=== PATIENT | male | born 1955 | race Caucasian/White ===

== ENCOUNTER 2017-12-11 14:23 | Inpatient (IN) | payer OTHER ==
[~2017-12-11] VITALS: Ht 167.6 cm; Wt 85.7 kg
[2017-12-11 15:17] LABS: Basophils # (auto) 0 uL; Basophils % (auto) 0.3 % (0.0-2.0); Eosinophils # (auto) 0 uL; Eosinophils % (auto) 0.3 % (0.0-7.0); Hematocrit 46.5 % (41.0-53.0); Hemoglobin 16.3 g/dL (13.5-17.5); Lymphocytes # (auto) 0.5 uL; Lymphocytes % (auto) 5.9 % (10.0-50.0); Mean Corpuscular Hemoglobin 32.5 pg (28.0-32.0); Mean Corpuscular Hgb Conc. 35.1 g/dL (32.0-36.0); Mean Corpuscular Volume 92.6 fL (80.0-100.0); Monocytes % (auto) 11.5 % (0.0-12.0); Neutrophils # (auto) 7.4 uL; Nucleated Red Blood Cells % 1.6 %; Platelet Count (auto) 169 10^3/uL (140-450); Red Blood Cells 5.02 10^6/uL (4.5-5.90); Red Cell Distribution Width 12.8 % (11.8-14.3)
[2017-12-11 15:31] LABS: Alanine Aminotransferase 32 U/L (16-61); Albumin 4.4 g/dL (3.4-5.0); Alkaline Phosphatase 89 U/L (45-117); Anion Gap 8 (5-15); Aspartate Aminotransferase 18 U/L (15-37); BUN/Creatinine Ratio 7.1; Bilirubin, Total 1.1 mg/dL (0.2-1.0); Blood Urea Nitrogen 10 mg/dL (7-18); Calcium 8.7 mg/dL (8.5-10.1); Carbon Dioxide 27 mmol/L (21-32); Chloride 104 mmol/L (98-107); GFR African American 66 mL/min; GFR Non-African American 55 mL/min; Glucose 119 mg/dL (74-106); Magnesium 2.3 mg/dL (1.6-2.6); Potassium 3.7 mmol/L (3.5-5.1); Sodium 139 mmol/L (136-145)
[2017-12-11] MEDS ORDERED: ONDANSETRON HCL 4 MG/2 ML VIAL IV ONE (20:15)
[2017-12-11] MEDS ORDERED: MORPHINE SULFATE 4 MG/ML SYR/VIAL IV ONE (20:15)
[2017-12-11] MEDS ORDERED: ASPirin-EC 81 mg tab PO ONE (22:00)
[2017-12-11] MEDS ORDERED: ONDANSETRON HCL 4 MG/2 ML VIAL IV PRN (22:30)
[2017-12-11] MEDS ORDERED: MORPHINE SULFATE 4 MG/ML SYR/VIAL IV PRN (22:30)
[2017-12-11] MEDS ORDERED: NITROGLYCERIN 0.4 MG SL TAB SL PRN (22:30)
[2017-12-11] MEDS ORDERED: ATORVASTATIN 20 MG TAB PO ONE (22:30)
[2017-12-11] MEDS ORDERED: ACETAMINOPHEN 325 MG TAB PO PRN (22:30)
[2017-12-11] MEDS ORDERED: HYDROcodone-ACET 5/325MG TAB PO PRN (22:30)
[2017-12-11 23:22] LABS: Amylase 40 U/L (25-115); Lipase 118 U/L (73-393)
[2017-12-11 23:32] LABS: Cholesterol 191 mg/dL (< 200); HDL Cholesterol 41 mg/dL (40-59); LDL Cholesterol 139 mg/dL (< 100); Triglycerides 118 mg/dL (< 150)
[2017-12-12 00:36] VITALS: BP 139/93
[2017-12-12 05:00] VITALS: BP 119/59
[2017-12-12 07:02] LABS: Albumin 3.7 g/dL (3.4-5.0); BUN/Creatinine Ratio 10.6; Bilirubin, Total 0.9 mg/dL (0.2-1.0); Calcium 8.2 mg/dL (8.5-10.1); Potassium 3.6 mmol/L (3.5-5.1); Total Protein 7.5 g/dL (6.4-8.2)
[2017-12-12 07:28] LABS: Hematocrit 45.6 % (41.0-53.0); Hemoglobin 15.5 g/dL (13.5-17.5); Mean Corpuscular Hemoglobin 31.6 pg (28.0-32.0); Mean Corpuscular Hgb Conc. 33.9 g/dL (32.0-36.0); Mean Corpuscular Volume 93.2 fL (80.0-100.0); Platelet Count (auto) 115 10^3/uL (140-450); Red Blood Cells 4.89 10^6/uL (4.5-5.90); Red Cell Distribution Width 12.8 % (11.8-14.3); White Blood Cell 4.8 10^3/uL (4.4-10.8)
[2017-12-12 07:36] LABS: Band Neutrophils % (manual) 0; Basophils % (manual) 0 (0.0-2.0); Blast Cells 0; Eosinophils % (manual) 0 (0-7); Metamyelocytes % 0; Myelocytes % 0; Promyelocytes % 0; Reactive Lymphocytes 0
[2017-12-12] MEDS: METOPROLOL TARTRATE 50 MG TAB PO SCH ×2 (08:46→22:03)
[2017-12-12] MEDS: ENOXAPARIN SOD 40 MG/0.4 ML SYRINGE SC SCH (08:46)
[2017-12-12] MEDS: ASPirin 81 mg TAB PO SCH (08:46)
[2017-12-12] MEDS: FAMOTIDINE 20 MG TAB PO SCH ×2 (08:46→22:03)
[2017-12-12 09:00] VITALS: BP 134/89
[2017-12-12 12:28] LABS: Lymphocytes % (manual) 15 (10.0-50.0); Monocytes % (manual) 18 (0-12)
[2017-12-12 13:00] VITALS: BP 131/88
[2017-12-12] MEDS: IBUPROFEN 600 MG TAB PO PRN ×2 (14:28→18:51)
[2017-12-12] MEDS: PROMETHAZINE W/CODEINE 5 ML ORAL SYRUP PO PRN (14:29)
[2017-12-12] MEDS ORDERED: HYDROcodone-ACET 5/325MG TAB PO PRN (14:30)
[2017-12-12 17:15] VITALS: BP 118/69
[2017-12-12 22:00] VITALS: BP 116/86
[2017-12-12] MEDS: AMITRIPTYLINE HCL 25 MG TAB PO SCH (22:02)
[2017-12-12] MEDS: ATORVASTATIN 20 MG TAB PO SCH (22:03)
[2017-12-12] MEDS ORDERED: LOPE2TAB73 PO (22:12)
[2017-12-12] MEDS ORDERED: OMEP20CA74 PO (22:12)
[2017-12-12] MEDS ORDERED: SERT-274 PO (22:12)
[2017-12-12] MEDS ORDERED: METO-169 PO (22:12)
[2017-12-12] MEDS ORDERED: AMIT25TA9 PO (22:12)
[2017-12-12] MEDS ORDERED: ROPI1TAB22 PO (22:12)
[2017-12-12] MEDS: TEMAZEPAM 15 MG CAP PO PRN (22:20)
[2017-12-13 05:00] VITALS: BP 125/80
[2017-12-13] MEDS: PROMETHAZINE W/CODEINE 5 ML ORAL SYRUP PO PRN (08:29)
[2017-12-13] MEDS: FAMOTIDINE 20 MG TAB PO SCH ×2 (08:30→22:33)
[2017-12-13] MEDS: IBUPROFEN 600 MG TAB PO PRN ×2 (08:30→20:47)
[2017-12-13] MEDS: METOPROLOL TARTRATE 50 MG TAB PO SCH ×2 (08:31→22:33)
[2017-12-13] MEDS: ENOXAPARIN SOD 40 MG/0.4 ML SYRINGE SC SCH (08:31)
[2017-12-13] MEDS: ASPirin 81 mg TAB PO SCH (08:31)
[2017-12-13 09:00] VITALS: BP_SYST 131; BP_SYST 153; BP_DIAS 75; BP_DIAS 90
[2017-12-13 13:00] VITALS: BP 114/76
[2017-12-13] MEDS ORDERED: guaiFENesin-DM 100/10mg/5ml SYR PO PRN (14:15)
[2017-12-13 17:00] VITALS: BP 121/78
[2017-12-13] MEDS: ALBUTEROL SULF 2.5 MG/0.5ML(0.5%) NEB SOLN NEB SCH (18:54)
[2017-12-13] MEDS: IPRATROPIUM BROM 0.5 MG/2.5ML INH SOL NEB SCH (18:54)
[2017-12-13 20:02] VITALS: BP 121/78
[2017-12-13 22:00] VITALS: BP 124/76
[2017-12-13] MEDS: ATORVASTATIN 20 MG TAB PO SCH (22:32)
[2017-12-13] MEDS: AMITRIPTYLINE HCL 25 MG TAB PO SCH (22:32)
[2017-12-13] MEDS: TEMAZEPAM 15 MG CAP PO PRN (22:33)
[2017-12-14 06:02] VITALS: BP 133/74
[2017-12-14] MEDS: IPRATROPIUM BROM 0.5 MG/2.5ML INH SOL NEB SCH ×2 (08:19→12:23)
[2017-12-14] MEDS: ALBUTEROL SULF 2.5 MG/0.5ML(0.5%) NEB SOLN NEB SCH ×2 (08:19→12:23)
[2017-12-14] MEDS ORDERED: ADENOSINE 72 MG in GIVE UN-DILUTED 0 ML IV ONE (08:45)
[2017-12-14 09:00] VITALS: BP 138/78
[2017-12-14] MEDS ORDERED: ALBUTEROL SULF 2.5 MG/0.5ML(0.5%) NEB SOLN ONE (09:58)
[2017-12-14] MEDS ORDERED: IPRATROPIUM BROM 0.5 MG/2.5ML INH SOL ONE (09:58)
[2017-12-14 10:00] VITALS: BP 107/80
[2017-12-14] MEDS ORDERED: predniSONE 20 MG TAB PO SCH (10:00)
[2017-12-14] MEDS ORDERED: SERTRALINE HCL 50 MG TAB PO SCH (10:00)
[2017-12-14] MEDS: FAMOTIDINE 20 MG TAB PO SCH (11:25)
[2017-12-14] MEDS: METOPROLOL TARTRATE 50 MG TAB PO SCH (11:26)
[2017-12-14] MEDS: ASPirin 81 mg TAB PO SCH (11:26)
[2017-12-14] MEDS: ENOXAPARIN SOD 40 MG/0.4 ML SYRINGE SC SCH (11:27)
[2017-12-14] MEDS: IBUPROFEN 600 MG TAB PO PRN (12:07)
[2017-12-14 13:00] VITALS: BP 136/81
[2017-12-14] MEDS ORDERED: ATOR20TA50 PO (13:01)
[2017-12-14] MEDS ORDERED: MET50T PO (13:01)
[2017-12-14] MEDS ORDERED: ASPI81CH43 PO (13:01)
[2017-12-14] MEDS ORDERED: ALBUAER3 IN (13:01)
[2017-12-14 16:04] VITALS: BP 136/81
== END 2017-12-14 17:30 | disposition home or self-care (01) | DRG 140 ==
LOC: ER 14:23 → TELE 14:24 → TELE-WESTW 23:52
PROVIDERS: ADMIT Nurse Practitioner; ATTEND Internal Medicine
DX: J44.0 Chronic obstructive pulmonary disease with (acute) lower respiratory infection (principal); D69.6 Thrombocytopenia, unspecified; I10 Essential (primary) hypertension; K57.30 Diverticulosis of large intestine without perforation or abscess without bleeding; J20.9 Acute bronchitis, unspecified; K58.0 Irritable bowel syndrome with diarrhea; F32.9 Major depressive disorder, single episode, unspecified; G43.909 Migraine, unspecified, not intractable, without status migrainosus; E78.5 Hyperlipidemia, unspecified; G47.00 Insomnia, unspecified; Z82.49 Family history of ischemic heart disease and other diseases of the circulatory system; Z90.49 Acquired absence of other specified parts of digestive tract; Z87.891 Personal history of nicotine dependence; Z88.8 Allergy status to other drugs, medicaments and biological substances
CPT/HCPCS: 36415; 71046; 74176; 80053; 80061; 82150; 83690; 83735; 83880; 84484; 85007; 85025; 85027; 85379; 87070; 87205; 93005; 93017; 93306; 94640; 94761; 96374; 96375; J0153; J2405

== ENCOUNTER 2021-09-10 19:52 | Emergency (ER) | payer MEDICAID, OTHER ==
[~2021-09-10] VITALS: Ht 167.6 cm; Wt 90.7 kg
[~2021-09-10 19:52] MED LIST: ALBUAER3 IN; AMIT25TA12 PO; ASPI81CH43 PO; ATOR20TA50 PO; LOPE2TAB73 PO; MET50T PO; OMEP20CA74 PO; SERT50TA19 PO
[2021-09-11 02:40] VITALS: BP 142/84
== END 2021-09-11 02:45 | disposition home or self-care (01) ==
LOC: ER 19:55
DX: I10 Essential (primary) hypertension (principal); F41.9 Anxiety disorder, unspecified; F32.9 Major depressive disorder, single episode, unspecified; J45.909 Unspecified asthma, uncomplicated; E78.5 Hyperlipidemia, unspecified; Z76.0 Encounter for issue of repeat prescription; Z59.00 Homelessness unspecified; Z88.8 Allergy status to other drugs, medicaments and biological substances

== ENCOUNTER 2021-10-11 16:36 | Emergency (ER) | payer MEDICAID ==
[~2021-10-11] VITALS: Ht 167.6 cm; Wt 83.5 kg
[2021-10-11 17:40] VITALS: BP 162/85
== END 2021-10-11 17:41 | disposition home or self-care (01) ==
LOC: ER 16:36
DX: I10 Essential (primary) hypertension (principal); K21.9 Gastro-esophageal reflux disease without esophagitis; F41.9 Anxiety disorder, unspecified; G25.81 Restless legs syndrome; E78.5 Hyperlipidemia, unspecified; J45.909 Unspecified asthma, uncomplicated; Z76.0 Encounter for issue of repeat prescription; Z79.82 Long term (current) use of aspirin; Z79.899 Other long term (current) drug therapy; Z88.8 Allergy status to other drugs, medicaments and biological substances

== ENCOUNTER 2021-11-16 14:48 | Emergency (ER) | payer MEDICAID ==
[~2021-11-16] VITALS: Ht 167.6 cm; Wt 86.2 kg
[2021-11-16] MEDS ORDERED: ATOR20TA50 PO (19:23)
[2021-11-16] MEDS ORDERED: SERT50TA19 PO (19:23)
[2021-11-16] MEDS ORDERED: METO-289 PO (19:23)
[2021-11-16] MEDS ORDERED: ROPI0.5T18 PO (19:23)
[2021-11-16] MEDS ORDERED: ALBUAER3 IN (19:23)
[2021-11-16 20:15] VITALS: BP 152/78
== END 2021-11-16 20:34 | disposition home or self-care (01) ==
LOC: ER 14:48
DX: I10 Essential (primary) hypertension (principal); F41.9 Anxiety disorder, unspecified; K21.9 Gastro-esophageal reflux disease without esophagitis; E78.5 Hyperlipidemia, unspecified; J45.909 Unspecified asthma, uncomplicated; Z76.0 Encounter for issue of repeat prescription; Z79.82 Long term (current) use of aspirin; Z79.899 Other long term (current) drug therapy; Z88.8 Allergy status to other drugs, medicaments and biological substances